=== PATIENT | female | born 1970 | race Caucasian/White ===

== ENCOUNTER 2016-07-19 18:07 | Emergency (ER) | payer OTHER ==
[~2016-07-19] VITALS: Ht 157.5 cm; Wt 55.8 kg
[2016-07-19 18:13] VITALS: BP 143/76
--- NOTE | 2016-07-19 19:19 | ED GI/GU/ABDOMINAL COMPLAINT ---
History of Present Illness General Chief Complaint: Female Urogenital Problems Stated Complaint: PT HAS ? POSSIBLE UTI Source: patient Exam Limitations: no limitations Vital Signs & Intake/Output Vital Signs & Intake/Output Vital Signs Date Time Temp Pulse Resp B/P Pulse O2 O2 Flow FiO2 Ox Delivery Rate 07/19 1813 98.9 83 18 143/76 98 Room Air Allergies Coded Allergies: NO KNOWN ALLERGIES (12/28/13) Reconcile Medications Benzonatate 100 MG CAPSULE 1 TAB PO DAILY U (Reported) Ciprofloxacin HCl (Cipro) 500 MG TABLET 1 TAB PO BID PRN UTI Mometasone Furoate (Nasonex) 50 MCG SPRAY.PUMP 1 SPRY NS PRN CONGESTION ( Reported) Phenazopyridine HCl (Pyridium) 100 MG TABLET 1 TAB PO TID PRN DYSURIA TAKE WITH FOOD THE COLOR OR YOUR URINE MAY CHANGE ORANGE Triage Note: 45 YO FEMALE TO ER C/O BURINING WITH URINATION. STATES LOWER ABD CRAMPING WHILE URINATING. STATES "I KNOW I HAVE A UTI BUT CANT WAIT TO SEE MY DR" PT STATES SHE TRIED OTC MEDICIEN WITHOUT RELIEF. PT PROVIDED WITH URINE CUP IN TRIAGE Triage Nurses Notes Reviewed? yes ? N Is pt currently ? No Onset: Gradual Duration: getting worse Timing: recent history Quality/Severity: moderate Severity Numbers: 7 Location: suprapubic Radiation: no radiation Prior Abdominal Problems: similar symptoms HPI: Patient is a 45-year-old female who presents emergency room with a seven-day history of worsening pain with urination increased frequency of urination and suprapubic abdominal discomfort. Patient denies any fever chills nausea vomiting back pain vaginal bleeding vaginal discharge or . Past History Travel History Traveled to [place] past 21 day No Medical History Any Pertinent Medical History? 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 No Review of Systems Review of Systems Constitutional: Reports: no symptoms. EENTM: Reports: no symptoms. Respiratory: Reports: no symptoms. Cardiovascular: Reports: no symptoms. GI: Reports: see HPI, abdominal pain. Genitourinary: Reports: see HPI, dysuria, frequency. Musculoskeletal: Reports: no symptoms. Skin: Reports: no symptoms. Neurological/Psychological: Reports: no symptoms. Hematologic/Endocrine: Reports: no symptoms. Immunologic/Allergic: Reports: no symptoms. All Other Systems: Reviewed and Negative Physical Exam Physical Exam General Appearance: no apparent distress Gastrointestinal: normal bowel sounds, soft, MILD SUPRAPUBIC POINT TENDERNESS, NO RIGHT LOWER QUADRANT PAIN NO REBOUND TENDERNESS NO PERITONEAL SIGNS Comments: Well-developed well-nourished person in no acute distress HEENT: Normal EENT exam, Neck: Supple, no lymphadenopathy, normal range of motion without pain or tenderness Back: Nontender, no CVA tenderness. Cardiovascular: Regular rate and rhythms no murmurs rubs or gallops, normal JVP Respiratory: Chest nontender. No respiratory distress.breath sounds clear to auscultation bilaterally Extremity: No edema, no calf tenderness to palpation, normal and equal pulses. Neuro: Alert oriented x3, motor sensory normal, Skin: No appreciable rash on exposed skin, skin is warm and dry. Psych: Mood and affect is normal, memory and judgment is normal. Core Measures ACS in differential dx? No Severe Sepsis Present: No Septic Shock Present: No Progress Differential Diagnosis: AAA, AMI, appendicitis, biliary colic, bowel obstruction , colon cancer, cholecystitis, diverticulitis, ectopic , endometritis, esophageal varices, gastritis, hepatitis, hernia, hemorrhoids, ischemic bowel, inflamm bowel dis, intrauterine , kidney stone, Mel-Leidy tear, ovarian cyst, ovarian torsion, pancreatitis, PID/cervicitis, peptic ulcer, PUD/ GERD, perforated viscous, SBO, threatened AB, UTI/pyelo Plan of Care: Orders Procedure Date/time Status Add-on Test (ER Only) 07/19 1909 Active URINE 07/19 1832 Complete CULTURE,URINE 07/19 1819 Active URINALYSIS 07/19 1819 Complete Laboratory Tests 07/19/161832: Urine Color YEL, Urine Clarity TURBD H, Urine pH 6.0, Ur Specific [place] >= 1.030, Urine Protein >=300 H, Urine Ketones NEG, Urine Nitrite NEG, Urine Bilirubin NEG, Urine Urobilinogen 0.2, Ur Leukocyte Esterase LARGE H, Ur Microscopic SEDIMENT EXAMINED, Urine RBC 15-25 H, Urine WBC PACKD H, Ur Epithelial Cells FEW, Urine Hemoglobin LARGE H, Urine Glucose NEG, Urine Test NEGATIVE Microbiology 07/19 1833 URINE ROUT: Urine Culture - RECD Due to history of present illness and exam findings patient is likely to have UNcomplicated cystitis urine culture currently is pending. Patient is able tolerate by mouth afebrile no CVA tenderness no right lower quadrant pain (MARNI HURST,HALLE) Initial ED EKG: none Departure Departure Disposition: HOME OR SELF CARE Condition: Stable Clinical Impression Primary Impression: UTI (urinary tract infection) Referrals: BAILEY HICKS APRN (PCP/Family) Additional Instructions: As discussed begin the prescription of ciprofloxacin as directed for the full course. Begin the prescription of Pyridium for your pain please note that this medication may change the color of your urine orange. If symptoms worsen return to emergency room. Begin [id number] Tylenol for pain. Prescription that waiting at [facility] pharmacy Departure Forms: Customer Survey General Discharge Information Prescriptions: Current Visit Scripts Ciprofloxacin HCl (Cipro) 1 TAB PO BID PRN UTI #20 TAB Phenazopyridine HCl (Pyridium) 1 TAB PO TID PRN DYSURIA #6 TAB TAKE WITH FOOD THE COLOR OR YOUR URINE MAY CHANGE ORANGE
[2016-07-19] MEDS ORDERED: BENZONATATE100 M1 PO (19:32)
[2016-07-19] MEDS ORDERED: NASONEX17 GM NS (19:33)
[2016-07-19] MEDS ORDERED: PYRIDIUM100 M1 PO (19:36)
[2016-07-19] MEDS ORDERED: CIPRO500 M1 PO (19:36)
== END 2016-07-19 19:43 ==
LOC: ERH 18:07
DX: N39.0 Urinary tract infection, site not specified (principal)
CPT/HCPCS: 81001; 81025; 87086

== ENCOUNTER 2017-09-22 09:48 | Inpatient (IN) | payer OTHER ==
[~2017-09-22] VITALS: Ht 157.5 cm; Wt 59.0 kg
[~2017-09-22 09:48] MED LIST: BENZONATATE100 M1 PO; CIPRO500 M1 PO; NASONEX17 GM NS; PYRIDIUM100 M1 PO
[2017-09-22 10:47] LABS: ABSOLUTE BASOPHIL COUNT 0 /CUMM (0.0-0.2); ABSOLUTE EOSINOPHIL COUNT 0 /CUMM (0.0-0.7); ABSOLUTE GRANULOCYTE CT 7.2 /CUMM (1.4-6.5); ABSOLUTE LYMPH COUNT 0.6 /CUMM (1.2-3.4); ABSOLUTE MONOCYTE COUNT 0.6 /CUMM (0.10-0.60); BASOPHIL % 0 % (0.0-2.0); EOSINOPHIL % 0.2 % (0-5); HEMATOCRIT 32.6 % (37-47); MEAN CORPUSCULAR HGB 24.2 PG (27.0-31.0); MEAN CORPUSCULAR HGB CONC 31.9 G/DL (33.0-37.0); MEAN CORPUSCULAR VOLUME 75.7 FL (81.0-99.0); MEAN PLATELET VOLUME 7.4 FL (7.4-10.4); PLATELET COUNT 209 /CUMM (130-400); RBC DISTRIBUTION WIDTH 16.8 % (11.5-14.5); RED BLOOD CELL CT 4.31 /CUMM (4.20-5.40); WHITE BLOOD CELL COUNT 8.4 /CUMM (4.8-10.8)
[2017-09-22 10:59] LABS: GRANULOCYTE % 85.4 % (42.2-75.2)
--- NOTE | 2017-09-22 11:54 | ED GENERAL ADULT ---
History of Present Illness General Chief Complaint: General Adult Stated Complaint: BIBA NEAR SYNCOPE, FEVER X FEW DAYS Source: patient, EMS Exam Limitations: no limitations Vital Signs & Intake/Output Vital Signs & Intake/Output Vital Signs Date Time Temp Pulse Resp B/P B/P Pulse O2 O2 Flow FiO2 Mean Ox Delivery Rate 09/22 1818 98.7 09/22 1626 103.7 09/22 1616 103.7 104 18 126/61 98 Room Air 09/22 1419 98 Room Air 09/22 1419 91 18 117/64 98 Room Air 09/22 1015 99.2 88 18 116/78 99 Room Air Room Air Allergies Coded Allergies: NO KNOWN ALLERGIES (07/19/16) Reconcile Medications No Known Home Medications Triage Note: BIBA FROM WORK WITH C/O FEVER, URINARY FREQUENCY, NEAR SYNCOPY AT WORK, TEMP WAS 100.4 AT WORK, TOOK TYLENOL AT WORK FOR THE FEVER. TEMP 99.2, 99% ON ROOM AIR. Triage Nurses Notes Reviewed? yes Onset: Abrupt Duration: day(s): (2), constant, getting worse Timing: recent history Injury Environment: home No Modifying Factors: none : No Patient currently breastfeeds: No HPI: 47-year-old female comes into the emergency room for further evaluation of almost passing out at work. Patient reports that she been feeling sick for the last couple days. She's had associated fever or chills. She's had some increased frequency and burning with urination. She has been experiencing some left-sided flank pain. She reports that she was at work and suddenly she had sitdown and everything just got very dizzy and lightheaded when she closes her eyes felt like she passed out. She reports that since this happened she's been profoundly weak. She cannot lift her arms or legs. She came in by ambulance. She reports a similar thing happen to her about a year ago and then the symptoms got better after couple days. She reports that she stayed in bed for 2 days. (Polo Qureshi) Past History Travel History Traveled to [place] past 21 day No Medical History Any Pertinent Medical History? 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 No (Polo Qureshi) Review of Systems Review of Systems Constitutional: Reports: no symptoms. EENTM: Reports: no symptoms. Respiratory: Reports: no symptoms. Cardiovascular: Reports: see HPI. GI: Reports: no symptoms. Genitourinary: Reports: see HPI. Musculoskeletal: Reports: no symptoms. Skin: Reports: no symptoms. Neurological/Psychological: Reports: see HPI. Hematologic/Endocrine: Reports: no symptoms. Immunologic/Allergic: Reports: no symptoms. All Other Systems: Reviewed and Negative (Polo Qureshi) Physical Exam Physical Exam General Appearance: alert, awake, lethargic Head: atraumatic Eyes: Bilateral: normal appearance, PERRL, EOMI. Ears, Nose, Throat: normal ENT inspection, hearing grossly normal Neck: normal inspection Respiratory: no respiratory distress Cardiovascular: regular rate/rhythm Gastrointestinal: soft Back: decreased range of motion Extremities: normal inspection, no edema Neurologic/Psych: awake, alert, oriented x 3, motor weakness (1/5 STRENGTH ALL EXTREMITIES) Reflexes: 4+: bicep (R), bicep (L), knee (R), knee (L). Skin: intact, normal color Core Measures ACS in differential dx? No CVA/TIA Diagnosis: No Sepsis Present: No Sepsis Focused Exam Completed? No (Polo Qureshi) Progress Differential Diagnoses I considered the following diagnoses in my evaluation of the patient: Hyperthyroid, electrolyte imbalance, multiple sclerosis, Ray syndrome, Guillain- Haddad syndrome, pyelonephritis, UTI, cardiac arrhythmia, Diagnostic Imaging: Viewed by Me: CT Scan. Discussed w/RAD: CT Scan. Radiology Impression: PATIENT: TOPHER BRONW PRESENT AGE: 47 PATIENT ACCOUNT NO: [id number] : 72 LOCATION: [facility] ORDERING PHYSICIAN: Polo HURST SERVICE DATE: 09/22/17-1153 EXAM TYPE: CAT - CT HEAD WO IV CONTRAST EXAMINATION: CT HEAD WITHOUT CONTRAST CLINICAL INFORMATION: Unable to move arms and legs. Syncope. COMPARISON: CT head 2016. TECHNIQUE: Contiguous axial imaging was performed from the skull base to vertex without intravenous administration of contrast. DLP: 606.52 mGy-cm FINDINGS: There is no acute intracranial hemorrhage or abnormal extra-axial collection. No intracranial mass effect or midline shift. Lateral and third ventricles are normal. No hydrocephalus. Miranda-white matter differentiation is grossly preserved and there is no evidence of acute territorial infarct. The calvarium and skull base are intact. Mastoid air cells and middle ear cavities are well-aerated. Visualized paranasal sinuses are well-aerated. IMPRESSION: Normal CT scan of the head. DICTATED BY: Kamran Solano MD DATE/TIME DICTATED:09/22/171235 AGENT BROKER:LIZ DATE/TIME TRANSCRIBED:1235 CONFIDENTIAL, DO NOT COPY WITHOUT APPROPRIATE AUTHORIZATION. < Electronically signed in Other Vendor System> SIGNED BY: Kamran Solano MD 09/22/17 1242 Initial ED EKG: normal sinus rhythm, rate (80) (Naresh HURST,Polo) Plan of Care: Orders Procedure Date/time Status TSH REFLEX 09/23 0600 Active CBC WITHOUT DIFFERENTIAL 09/23 0600 Active BASIC ELECTROLYTES PLUS BUN&CR 09/23 0600 Active Regular Diet 09/22 D Active MRI-CERVICAL SPINE 09/22 1659 Active PSYCHIATRIC CONSULT 09/22 1659 Active XRY-PORTABLE CHEST XRAY 09/22 1654 Active Patient Data 09/22 1521 Active TRC EVALUATION (GEN) 09/22 1507 Active PT Evaluate & Treat 09/22 1507 Active Pathway - chart 09/22 1507 Active House Staff 09/22 1507 Active Add-on Test (ER Only) 09/22 1507 Active Code Status 09/22 1507 Active Add-on Test (ER Only) 09/22 1504 Active ED Holding Orders 09/22 1440 Active Admit to inpatient 09/22 1440 Active Vital Signs 09/22 1440 Active Code Status 09/22 1440 Complete Add-on Test (ER Only) 09/22 1355 Active Add-on Test (ER Only) 09/22 1350 Active Add-on Test (ER Only) 09/22 1347 Active Add-on Test (ER Only) 09/22 1153 Active MISTAKE 09/22 1153 Active BLOOD CULTURE 09/22 1153 Active EKG 09/22 1153 Active THYROID STIMULATING HORMONE 09/22 1038 Complete TROPONIN LEVEL 09/22 1038 Complete TOTAL TRIODOTHYROXINE 09/22 1038 Complete THYROXINE 09/22 1038 Complete MAGNESIUM 09/22 1038 Complete LACTIC ACID 09/22 1038 Complete HUMAN BETA HCG SCREEN 09/22 1038 Complete FREE T4 09/22 1038 Complete CREATINE PHOSPHOKINASE 09/22 1038 Complete CULTURE,URINE 09/22 1035 Active URINALYSIS 09/22 1020 Complete RAPID VIRAL INFLUENZA A 09/22 1017 Complete COMPREHENSIVE METABOLIC PANEL 09/22 1017 Complete CBC WITHOUT DIFFERENTIAL 09/22 1017 Complete SWALLOW EVALUATION 09/22 UNK Active VTE Mechanical Prophylaxis 09/22 UNK Active NIH Stroke Scale 09/22 UNK Complete Intake & Output 09/22 UNK Active Current Medications Sig/Efrain Start time Last Medication Dose Stop Time Status Admin Ceftriaxone Sodium 1,000 MG DAILY 09/23 0900 AC (Rocephin) Enoxaparin Sodium 40 MG DAILY 09/23 0900 AC (Lovenox) Sodium Chloride 1,000 ML .[id number] 09/22 1515 AC 09/22 (Normal Saline 0.9%) 09/23 1754 1530 Laboratory Tests 09/22/17 1038: Anion Gap 12, Estimated GFR > 60, BUN/Creatinine Ratio 22.0, Glucose 122 H, Lactic Acid 0.8, Calcium 9.4, Magnesium 1.9, Total Bilirubin 0.5, AST 12 L, ALT 26, Alkaline Phosphatase 59, Creatine Kinase 70, Troponin I < 0.01, Total Protein 7.2, Albumin 3.9, Globulin 3.3, Albumin/Globulin Ratio 1.2, TSH 0.232 L , Free T4 1.00, Thyroxine (T4) 7.8, Total T3 0.99, Total Beta HCG NEGATIVE, CBC w Diff NO MAN DIFF REQ, RBC 4.31, MCV 75.7 L, MCH 24.2 L, MCHC 31.9 L, RDW 16.8 H, MPV 7.4, Gran % 85.4 H, Lymphocytes % 7.5 L, Monocytes % 6.9, Eosinophils % 0.2, Basophils % 0, Absolute Granulocytes 7.2 H, Absolute Lymphocytes 0.6 L, Absolute Monocytes 0.6, Absolute Eosinophils 0, Absolute Basophils 0 09/22/17 1035: Urine Color YEL, Urine Clarity HAZY H, Urine pH 6.0, Ur Specific [place] 1.025, Urine Protein 100 H, Urine Ketones NEG, Urine Nitrite POS H, Urine Bilirubin NEG, Urine Urobilinogen 0.2, Ur Leukocyte Esterase MOD H, Ur Microscopic SEDIMENT EXAMINED, Urine RBC 5-10 H, Urine WBC 25-50 H, Urine Bacteria MANY H , Urine Hemoglobin LARGE H, Urine Glucose NEG Microbiology 09/22 1330 BLOOD: Blood Culture - RECD 09/22 1214 BLOOD: Blood Culture - RECD 09/22 1035 URINE ROUT: Urine Culture - RECD 09/22 1035 NASOPHARYN: Influenza Virus A & B Rapid Smear - COMP (Gary Pelayo DO) Departure Departure Disposition: STILL A PATIENT Condition: Stable Clinical Impression Primary Impression: Pyelonephritis Secondary Impressions: Hyper reflexia, Motor dysfunction Referrals: Caryn Ochoa APRN (PCP/Family) Departure Forms: Customer Survey General Discharge Information Prescriptions: Current Visit Scripts No Known Home Medications Admission Note Spoke With: Caity Watkins MD Documentation of Exam: Documentation of any treatments & extenuating circumstances including Concerns Regarding Discharge (functional status, medication knowledge or non-compliance, living conditions, etc.) that warrant an admission rather than observation: Patient will require IV fluids. IV antibiotics. MRI of brain and spinal cord. Neurology consultation. PT consult patient unable to ambulate. Patient has progressive motor weakness diffuse with no clear etiology at this time. She is unsafe for discharge. She may require lumbar puncture. Dr. Guerra was consulted and will see the patient. (Polo Qureshi) PA/TREE WARDEN Co-Sign Statement Statement: ED Attending supervision documentation- [X] I saw and evaluated the patient. I have also reviewed all the pertinent lab results and diagnostic results. I agree with the findings and the plan of care as documented in the PA's/TREE WARDEN's documentation. [] I have reviewed the ED Record and agree with the PA's/TREE WARDEN's documentation. [] Additions or exceptions (if any) to the PAs/TREE WARDEN's note and plan are summarized below: [] I saw and personally examined the patient and I agree with the PAs evaluation. She is currently awake alert and oriented 3. She is in no acute distress. She is being admitted to telemetry for further care. She says she's had similar episodes of the same symptoms complex in the past (Gary Pelayo DO L.) Critical Care Note Critical Care Note Critical Care Time: non-applicable (Naresh HURST,Polo)
--- NOTE | 2017-09-22 12:42 | CT SCAN REPORT ---
EXAMINATION: CT HEAD WITHOUT CONTRAST CLINICAL INFORMATION: Unable to move arms and legs. Syncope. COMPARISON: CT head 12/16/2016. TECHNIQUE: Contiguous axial imaging was performed from the skull base to vertex without intravenous administration of contrast. DLP: 606.52 mGy-cm FINDINGS: There is no acute intracranial hemorrhage or abnormal extra-axial collection. No intracranial mass effect or midline shift. Lateral and third ventricles are normal. No hydrocephalus. Miranda-white matter differentiation is grossly preserved and there is no evidence of acute territorial infarct. The calvarium and skull base are intact. Mastoid air cells and middle ear cavities are well-aerated. Visualized paranasal sinuses are well-aerated. IMPRESSION: Normal CT scan of the head.
--- NOTE | 2017-09-22 13:53 | History & Physical ---
Shantel Soliz MD,[facility] 09/22/17 1353: General Information and HPI MD Statement: I have seen and personally examined TOPHER BROWN and documented this H&P. The patient is a 47 year old F who presented with a patient stated chief complaint of [syncope and weakness]. Source of Information: patient History of Present Illness: Patient is a 47-year-old female with no signficant PMH was BIBA from work after a near syncope. A colic of her was present at the bedside and contributing kidney surgery taking. 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 Patient reported that since last week she was having increased frequency and dysuria. She also noted that during the last week she had one episode of upper respiratory tract symptoms, fever of 99-100. This morning she was at work, again had fever, she took tynelol but was feeling extremely weak, she went to break room, she sat on chair and could not move and passed. According to her colic she lost consciousness for a few minutes, she couldn't speak. She denied any palpitation, nausea vomiting, chest pain, shortness of breathing, losing continence or jercky motion. she also reported tingling in arms and feet with weakness being more sever in the lower extremities. She denied any recent tavel, tick bit or loose stools. Of note patient was admitted to the ED in the past after passing out during dentis work. 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 Exam & Diagnostic Data Last 24 Hrs of Vital Signs/I&O Vital Signs Date Time Temp Pulse Resp B/P B/P Pulse O2 O2 Flow FiO2 Mean Ox Delivery Rate 09/22 1626 103.7 09/22 1616 103.7 104 18 126/61 98 Room Air 09/22 1419 98 Room Air 09/22 1419 91 18 117/64 98 Room Air 09/22 1015 99.2 88 18 116/78 99 Room Air Room Air Intake & Output 09/22 1600 09/22 0800 09/22 0000 Intake Total 1000 Output Total Balance 1000 Intake, IV 1000 Patient 124 lb Weight Weight Reported by Patient Measurement Method Physical Exam General Appearance Alert, Oriented X3, Cooperative, shaking at times Skin No Significant Lesion Skin Temp/Moisture Exam: Warm/Dry Sepsis Skin Exam (color): Normal for Ethnicity HEENT Atraumatic, EOMI Cardiovascular Normal S1, Normal S2 Lungs Normal Air Movement Abdomen Soft, No Tenderness Neurological bilateral LE and UE 0-1/5, increased reflexes bilaterally, cranial nerves normal. decreased sensation in distal LE. Extremities No Edema Last 24 Hrs of Labs/Diego: Laboratory Tests 09/22/17 1038: Anion Gap 12, Estimated GFR > 60, BUN/Creatinine Ratio 22.0, Glucose 122 H, Lactic Acid 0.8, Calcium 9.4, Magnesium 1.9, Total Bilirubin 0.5, AST 12 L, ALT 26, Alkaline Phosphatase 59, Creatine Kinase 70, Troponin I < 0.01, Total Protein 7.2, Albumin 3.9, Globulin 3.3, Albumin/Globulin Ratio 1.2, TSH 0.232 L , Free T4 1.00, Thyroxine (T4) 7.8, Total T3 0.99, Total Beta HCG NEGATIVE, CBC w Diff NO MAN DIFF REQ, RBC 4.31, MCV 75.7 L, MCH 24.2 L, MCHC 31.9 L, RDW 16.8 H, MPV 7.4, Gran % 85.4 H, Lymphocytes % 7.5 L, Monocytes % 6.9, Eosinophils % 0.2, Basophils % 0, Absolute Granulocytes 7.2 H, Absolute Lymphocytes 0.6 L, Absolute Monocytes 0.6, Absolute Eosinophils 0, Absolute Basophils 0 09/22/17 1035: Urine Color YEL, Urine Clarity HAZY H, Urine pH 6.0, Ur Specific [place] 1.025, Urine Protein 100 H, Urine Ketones NEG, Urine Nitrite POS H, Urine Bilirubin NEG, Urine Urobilinogen 0.2, Ur Leukocyte Esterase MOD H, Ur Microscopic SEDIMENT EXAMINED, Urine RBC 5-10 H, Urine WBC 25-50 H, Urine Bacteria MANY H , Urine Hemoglobin LARGE H, Urine Glucose NEG Microbiology 09/22 1330 BLOOD: Blood Culture - RECD 09/22 1214 BLOOD: Blood Culture - RECD 09/22 1035 URINE ROUT: Urine Culture - RECD 09/22 1035 NASOPHARYN: Influenza Virus A & B Rapid Smear - COMP Assessment/Plan Assessment: 47-year-old F with no signficant PMH was BIBA from work after a near syncope - associated with increasd frequency and disuria - fever VS, Ph Ex at admission: MAXIMUM TEMPERATURE 99.2, BP 116/78, NV 88, RR 18 Labs at admission: WBC 8.4, Hgb 10.4, 85% granulocytic, no band, BEP 3.3, UA Imagings at admission: Head CT: Normal Patient was admitted to tele floor for management of following conditions: Cyncope, bilateral LE and UE weakness, decreased sensation LE, increased reflex Not consistant with any pathology, considering sensation decrease and increased reflex. we will rule out peripheral neuropathy, as well as cervical spine pathology. we will also consider conversion disorder, of note patient had previous admissions to ED after syncope in dentis office. - admit to tele floor - neurochecks, breathing test - Neuro consult - MRI cervical spine - follow repeat TFT Active UA, fever Vital sign stable at time of admission. We will treat pyelonephritis with IV ceftriaxone. -IV fluids -IV ceftriaxone - follow Urine culture FC Regular DVT PPX: pharmacological, alps As Ranked By This Provider Problem List: 1. Syncope 2. UTI (urinary tract infection) Core Measures/Misc (02/22) Acute Coronary Syndrome ACS Diagnosis: No Congestive Heart Failure Congestive Heart Failure Diagnosis No Cerebrovascular Accident CVA/TIA Diagnosis: No VTE (View Protocol) VTE Risk Factors Age>40 No Mechanical VTE Prophylaxis d/t N/A MechProphylax Ordered No VTE Pharm Prophylaxis d/t NA PharmProphylax ordered Sepsis (View protocol) Sepsis Present: No Enrique Lechuga 09/22/17 1612: Resident Review Statement Resident Statement: examined this patient, discussed with internal security manager, agreed with internal security manager, discussed with family, reviewed EMR data (avail), discussed with nursing , amended to note Other Findings: 47-year-old woman with no significant past medical history with recent lingering upper respiratory/urinary symptoms of one-week duration, seat no medical attention, reported temperatures at home of 99/100, 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 She admitted to being a warmth, feeling feverish prior to her episode while she was in a seated position. She is accompanied by a coworker, who reports that she was unconscious for 2 minutes, no seizure-like activity, no facial droop, no slurry speech. This prompted them to call ED. In the ED, patient had unremarkable set of labs except for low normal TSH and a urine positive for nitrite. Head CT obtained revealed normal scan of the head. On exam, cranial nerves WNL, motor exam-good tone with passive motion, no rigidity. Absent active motion. Able to move her fingers unprompted. Hyperreflexic in bilateral lower extremities. Normal bicep tendon reflexes. Given patient's peculiar presentation, in the setting of recent respiratory infections, spinal causes of her current presentation need to be ruled out with MRI C-spine. If unable to show spontaneous improvement, she may need a MRI head to rule out a demyelinating disease, although unlikely. Her presentation could also suggest subclinical thyroid disease in the setting of low TSH, hyperreflexia, recent upper respiratory infection. But her nontender and normal thyroid exam may counter this part. Repeat TSH, T4 tomorrow morning. She may need an endocrinology evaluation. Neurology evaluation. Treat UTI with IV ceftriaxone. Fluid hydration. Full code Regular diet Lovenox for DVT prophylaxis Caity Watkins MD 09/22/17 1642: Past Family/Social History Psychosocial History Other Social History: Family history non contributory to current illness. Attending MD Review Statement Attending Statement Attending MD Statement: examined this patient, discuss w/resident/PA/KITCHEN FOOD ASSEMBLER, agreed w/resident/PA/KITCHEN FOOD ASSEMBLER, reviewed EMR data (avail), discussed with nursing, reviewed images Attending Assessment/Plan: 47-year-old female no significant past medical history. 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 She is here after a witnessed syncopal event at work. Initially patient had a low-grade fever in the ER and was complaining of urinary frequency and burning. Later she spiked to 103.8 and is tachycardic. Given the fever, the tachycardia and the positive UA- I believe this is all sepsis of urological origin. Will bring her into telemetry given the syncopal event, get blood cultures and start on IV ceftriaxone and closely follow the urine culture. We will replete her hypokalemia and gently hydrate her. Her neurological exam is extremely confusing and nonfocal. She has hyperreflexia and her sensory deficit in her lower extremities don't fit any anatomical area. She was seen by neurology who feels that likely this is conversion disorder but given the history and hyperreflexia an MRI of the C- spine is warranted which we will pursue. I think the syncope is all from dehydration and sepsis and will watch her on the monitor overnight. If she has no further events and is stable will have a low threshold to downgrade to general med. Will put her on DVT prophylaxis and follow-up.
--- NOTE | 2017-09-22 16:11 | Cons- Neurology ---
General Information and HPI Consulting Request Date of Consult: 09/22/17 Requested By: Caity Watkins MD Reason for Consult: Unable to move after syncope Source of Information: patient, old records, friend Exam Limitations: poor historian History of Present Illness: 47? originally from [facility] not feeling well with feverishness, malaise, low back aches for several days but able to walk and go to work passed out at her workplace this AM. No seizure activity witnessed, no apparent head or neck injury, but reports inability to move the 4 extremities normally since then. When asked offers tingling paresthesias hands and feet. Denies any prior neurologic abnormality. CT head OK Allergies/Medications Allergies: Coded Allergies: NO KNOWN ALLERGIES (07/19/16) Home Med List: No Known Home Medications Current Medications: Current Medications Sig/Efrain Start time Last Medication Dose Route Stop Time Status Admin Ceftriaxone Sodium 1,000 MG DAILY 09/23 0900 UNVr IV Ceftriaxone Sodium 0 .STK-MED ONE 09/22 1430 DC .ROUTE Ceftriaxone Sodium 1,000 MG ONCE ONE 09/22 1200 DC 09/22 IV 09/22 1201 1530 Enoxaparin Sodium 40 MG DAILY 09/23 0900 UNVr SC Potassium Chloride 0 .STK-MED ONE 09/22 1429 DC PO Potassium Chloride 40 MEQ ONCE ONE 09/22 1400 DC 09/22 PO 09/22 1401 1428 Sodium Chloride 1,000 ML .[id number] 09/22 1515 UNVr 09/22 IV 09/23 1754 1530 Sodium Chloride 1,000 ML BOLUS ONE 09/22 1200 DC 09/22 IV 09/22 1259 1415 Review of Systems Review of Systems: dysuria, denies headache, nausea, chest pain or dyspnea. no incontinence noted. other systems on complete ROS negative or non-contributory Past History Travel History Traveled to [place] past 21 day No Medical History Neurological: NONE EENT: NONE Cardiovascular: NONE Respiratory: NONE Gastrointestinal: NONE Hepatic: NONE Renal: NONE Musculoskeletal: NONE Psychiatric: NONE Endocrine: NONE Blood Disorders: anemia Cancer(s): NONE MANAGER APPOINTMENT/Reproductive: NONE Surgical History Surgical History: , breast biopsy Psychosocial History ETOH Use: denies use Illicit Drug Use: denies illicit drug use Exam & Diagnostic Data Vital Signs and I&O Vital Signs Date Time Temp Pulse Resp B/P B/P Pulse O2 O2 Flow FiO2 Mean Ox Delivery Rate 09/22 1419 98 Room Air 09/22 1419 91 18 117/64 98 Room Air 09/22 1015 99.2 88 18 116/78 99 Room Air Room Air Intake & Output 09/22 1600 09/22 0800 09/22 0000 Intake Total 1000 Output Total Balance 1000 Intake, IV 1000 Patient 124 lb Weight Weight Reported by Patient Measurement Method Physical Exam: Alert, in no distress speech accented, not dysarthric, no dyphasia [id number] EOMI face symmetric, eyes open during history taking but then claimed could not open them when eyes examined, had to lift lids manually to see pupils unable to protrude tongue or move tongue left or right when asked, but speech clear Motor: initially no movement any extremity, she holds them rigid in extension, but later reached up to touch her face. reports abnormal sensation to touch face and 4 ext DTRs hyperactive but no clonus, Singleton's or Babinski signs Last 48 Hours of Lab Results: Laboratory Tests 09/22 09/22 1038 1035 Chemistry Sodium (137 - 145 mmol/L) 141 Potassium (3.5 - 5.1 mmol/L) 3.3 L Chloride (98 - 107 mmol/L) 107 Carbon Dioxide (22 - 30 mmol/L) 22 Anion Gap (5 - 16) 12 BUN (7 - 17 mg/dL) 11 Creatinine (0.5 - 1.0 mg/dL) 0.5 Estimated GFR (>60 ml/min) > 60 BUN/Creatinine Ratio (7 - 25 %) 22.0 Glucose (65 - 99 mg/dL) 122 H Lactic Acid (0.7 - 2.1 mmol/L) 0.8 Calcium (8.4 - 10.2 mg/dL) 9.4 Magnesium (1.6 - 2.3 mg/dL) 1.9 Total Bilirubin (0.2 - 1.3 mg/dL) 0.5 AST (14 - 36 U/L) 12 L ALT (9 - 52 U/L) 26 Alkaline Phosphatase (<127 U/L) 59 Creatine Kinase (30 - 135 U/L) 70 Troponin I (< 0.11 ng/ml) < 0.01 Total Protein (6.3 - 8.2 g/dL) 7.2 Albumin (3.5 - 5.0 g/dL) 3.9 Globulin (1.9 - 4.2 gm/dL) 3.3 Albumin/Globulin Ratio (1.1 - 2.2 %) 1.2 TSH (0.270 - 4.200 uIU/mL) 0.232 L Free T4 (0.64 - 1.79 ng/dL) 1.00 Thyroxine (T4) (4.5 - 10.9 ug/dL) 7.8 Total T3 (0.97 - 1.69 ng/mL) 0.99 Total Beta HCG (NEGATIVE) NEGATIVE Hematology CBC w Diff NO MAN DIFF REQ WBC (4.8 - 10.8 /CUMM) 8.4 RBC (4.20 - 5.40 /CUMM) 4.31 Hgb (12.0 - 16.0 G/DL) 10.4 L Hct (37 - 47 %) 32.6 L MCV (81.0 - 99.0 FL) 75.7 L MCH (27.0 - 31.0 PG) 24.2 L MCHC (33.0 - 37.0 G/DL) 31.9 L RDW (11.5 - 14.5 %) 16.8 H Plt Count (130 - 400 /CUMM) 209 MPV (7.4 - 10.4 FL) 7.4 Gran % (42.2 - 75.2 %) 85.4 H Lymphocytes % (20.5 - 51.1 %) 7.5 L Monocytes % (1.7 - 9.3 %) 6.9 Eosinophils % (0 - 5 %) 0.2 Basophils % (0.0 - 2.0 %) 0 Absolute Granulocytes (1.4 - 6.5 /CUMM) 7.2 H Absolute Lymphocytes (1.2 - 3.4 /CUMM) 0.6 L Absolute Monocytes (0.10 - 0.60 /CUMM) 0.6 Absolute Eosinophils (0.0 - 0.7 /CUMM) 0 Absolute Basophils (0.0 - 0.2 /CUMM) 0 Urines Urine Color (YEL,AMB,STR) YEL Urine Clarity (CLEAR) HAZY H Urine pH (5.0 - 8.0) 6.0 Ur Specific [place] (1.001 - 1.035) 1.025 Urine Protein (NEG,<30 MG/DL) 100 H Urine Ketones (NEG) NEG Urine Nitrite (NEG) POS H Urine Bilirubin (NEG) NEG Urine Urobilinogen (0.1 - 1.0 EU/dl) 0.2 Ur Leukocyte Esterase (NEG) MOD H Ur Microscopic SEDIMENT EXAMINED Urine RBC (0 - 5 /HPF) 5-10 H Urine WBC (0 - 2 /HPF) 25-50 H Urine Bacteria (NEG/NONE) MANY H Urine Hemoglobin (NEG) LARGE H Urine Glucose (N MG/DL) NEG Imaging/Other Studies: Normal CT scan of the head. Assessment/Plan Assessment: Conversion reaction non-physiologic neuro exam Recommendations: due to hyperreflexia and history would check MRI C-Spine psychiatric consultation Consult Acknowledgment - Thank you for your consult request.
--- NOTE | 2017-09-22 18:42 | RADIOLOGY REPORT ---
EXAMINATION: XR PORTABLE CHEST CLINICAL INFORMATION: Fever COMPARISON: None TECHNIQUE: Portable frontal view of the chest was obtained. FINDINGS: The cardiomediastinal silhouette is normal. The lungs are clear. No consolidation, pulmonary edema, pleural effusion, or pneumothorax. No acute osseous abnormality. IMPRESSION: No acute abnormality.
[2017-09-23 06:05] LABS: ABSOLUTE BASOPHIL COUNT 0 /CUMM (0.0-0.2); ABSOLUTE EOSINOPHIL COUNT 0 /CUMM (0.0-0.7); ABSOLUTE GRANULOCYTE CT 7.2 /CUMM (1.4-6.5); ABSOLUTE LYMPH COUNT 0.8 /CUMM (1.2-3.4); ABSOLUTE MONOCYTE COUNT 0.5 /CUMM (0.10-0.60); BASOPHIL % 0.2 % (0.0-2.0); EOSINOPHIL % 0.2 % (0-5); GRANULOCYTE % 84.4 % (42.2-75.2); HEMATOCRIT 30.5 % (37-47); MEAN CORPUSCULAR HGB CONC 31.7 G/DL (33.0-37.0); MEAN CORPUSCULAR VOLUME 75.8 FL (81.0-99.0); MEAN PLATELET VOLUME 8.5 FL (7.4-10.4); PLATELET COUNT 179 /CUMM (130-400); RBC DISTRIBUTION WIDTH 17.6 % (11.5-14.5); RED BLOOD CELL CT 4.02 /CUMM (4.20-5.40); WHITE BLOOD CELL COUNT 8.6 /CUMM (4.8-10.8)
--- NOTE | 2017-09-23 06:30 | Event Note ---
Event Note Event Note: call back from micro lab that blood cultures 1/2 bottles is growing GNR patient has been spiking fevers overnight for which she has received motrin and tylenol patient received IV Ceftriaxone in the ER yesterday.
[2017-09-23 07:00] VITALS: BP 96/51
--- NOTE | 2017-09-23 07:42 | PN- Housestaff ---
See Addendum Subjective Follow-up For: - Syncope - GNR bacteremia Complaints: no complaints Subjective: Patient seen and exmained at bedside. She is growing gram negative rods in her blood. States that she feels better than yesterday. Of note she was texting when I first walked in the room, however, she later stated that she feels weak, and was not able to scoot herself up in bed, while exmaining her. She denies any numbness, or tingling sensation and is moving all her extremities. No focal parestehisa or sensation Vitals past 24 hrs Tmax: 103.7-->101.9F, tachycardic to 109 (sinus); BP: 96-126/ 51-60 saturating 98% on RA. Review of Systems Constitutional: Reports: chills, fever, weakness. EENTM: Denies: visual changes. Cardiovascular: Denies: chest pain, orthopena, palpitations, peripheral edema. Respiratory: Denies: cough, hemoptysis, orthopnea, short of breath, sputum production, wheezing. Gastrointestinal: Denies: abdominal pain, constipation, diarrhea, nausea, vomiting. Genitourinary: Reports: dysuria, frequency. Denies: hematuria. Musculoskeletal: Reports: no symptoms. Neurological/Psychological: Reports: weakness. Denies: headache, numbness, tingling, tremors. Objective Last 24 Hrs of Vital Signs/I&O Vital Signs Date Time Temp Pulse Resp B/P B/P Pulse O2 O2 Flow FiO2 Mean Ox Delivery Rate 09/23 0552 97.7 70 18 96/51 97 Room Air 09/23 0156 101.0 09/23 0012 101.4 108 16 111/55 97 Room Air 09/22 2246 101.9 09/22 2217 101.9 109 20 128/60 99 Room Air 09/22 1920 98.4 92 20 98/56 97 Room Air 09/22 1818 98.7 09/22 1626 103.7 09/22 1616 103.7 104 18 126/61 98 Room Air 09/22 1419 98 Room Air 09/22 1419 91 18 117/64 98 Room Air 09/22 1015 99.2 88 18 116/78 99 Room Air Room Air Intake & Output 09/23 0800 09/23 0000 09/22 1600 Intake Total 1000 Output Total Balance 1000 Intake, IV 1000 Patient 124 lb Weight Weight Reported by Patient Measurement Method Physical Exam General Appearance: Alert, Oriented X3, Cooperative, No Acute Distress Skin Temp/Moisture Exam: Warm/Dry HEENT: Atraumatic, PERRLA, EOMI, dry mucous membranes Neck: Supple, No JVD, No thryomegaly, No LAD Cardiovascular: Regular Rate, Normal S1, Normal S2, No Murmurs Lungs: Clear to Auscultation, Normal Air Movement Abdomen: Normal Bowel Sounds, Soft, No Tenderness Neurological: Normal Speech, Normal Tone, Sensation Intact, Cranial Nerves 3-12 NL, Reflexes 2+, strength 3/5 in all 4 extremities, plantars downgoing Extremities: No Edema, Normal Pulses, No Tenderness/Swelling Current Medications: Current Medications Sig/Efrain Start time Last Medication Dose Route Stop Time Status Admin Acetaminophen 0 .STK-MED ONE 09/23 0202 DC PO Acetaminophen 650 MG ONCE ONE 09/23 0200 DC 09/23 PO 09/23 0201 0156 Acetaminophen 0 .STK-MED ONE 09/22 1625 DC IV Acetaminophen 1,000 MG ONCE ONE 09/22 1615 DC 09/22 N/A 1 UNIT IV 09/22 1629 1626 Ceftriaxone Sodium 1,000 MG DAILY 09/23 0900 AC IV Ceftriaxone Sodium 0 .STK-MED ONE 09/22 1430 DC .ROUTE Ceftriaxone Sodium 1,000 MG ONCE ONE 09/22 1200 DC 09/22 IV 09/22 1201 1530 Enoxaparin Sodium 40 MG DAILY 09/23 0900 AC SC Ibuprofen 0 .STK-MED ONE 09/22 2251 DC PO Ibuprofen 0 .STK-MED ONE 09/22 2249 DC PO Ibuprofen 400 MG ONCE ONE 09/22 2230 DC 09/22 PO 09/22 2231 2246 Potassium Chloride 0 .STK-MED ONE 09/22 1429 DC PO Potassium Chloride 40 MEQ ONCE ONE 09/22 1400 DC 09/22 PO 09/22 1401 1428 Sodium Chloride 1,000 ML BOLUS ONE 09/22 1630 DC 09/22 IV 09/22 1729 1626 Sodium Chloride 1,000 ML .[id number] 09/22 1515 AC 09/23 IV 09/23 1754 0439 Sodium Chloride 1,000 ML BOLUS ONE 09/22 1200 DC 09/22 IV 09/22 1259 1415 Last 24 Hrs of Lab/Diego Results Last 24 Hrs of Labs/Mics: Laboratory Tests 09/23/17 0547: Anion Gap 10, Estimated GFR > 60, BUN/Creatinine Ratio 15.0, Phosphorus Pending, Magnesium Pending, Creatine Kinase Pending, TSH &T3 &Free T4 Intrp 0.234 L, CBC w Diff NO MAN DIFF REQ, RBC 4.02 L, MCV 75.8 L, MCH 24.0 L, MCHC 31.7 L, RDW 17.6 H, MPV 8.5, Gran % 84.4 H, Lymphocytes % 8.9 L, Monocytes % 6.3, Eosinophils % 0.2, Basophils % 0.2, Absolute Granulocytes 7.2 H, Absolute Lymphocytes 0.8 L, Absolute Monocytes 0.5, Absolute Eosinophils 0, Absolute Basophils 0 09/22/17 1038: Anion Gap 12, Estimated GFR > 60, BUN/Creatinine Ratio 22.0, Glucose 122 H, Lactic Acid 0.8, Calcium 9.4, Magnesium 1.9, Total Bilirubin 0.5, AST 12 L, ALT 26, Alkaline Phosphatase 59, Creatine Kinase 70, Troponin I < 0.01, Total Protein 7.2, Albumin 3.9, Globulin 3.3, Albumin/Globulin Ratio 1.2, TSH 0.232 L , Free T4 1.00, Thyroxine (T4) 7.8, Total T3 0.99, Total Beta HCG NEGATIVE, CBC w Diff NO MAN DIFF REQ, RBC 4.31, MCV 75.7 L, MCH 24.2 L, MCHC 31.9 L, RDW 16.8 H, MPV 7.4, Gran % 85.4 H, Lymphocytes % 7.5 L, Monocytes % 6.9, Eosinophils % 0.2, Basophils % 0, Absolute Granulocytes 7.2 H, Absolute Lymphocytes 0.6 L, Absolute Monocytes 0.6, Absolute Eosinophils 0, Absolute Basophils 0 09/22/17 1035: Urine Color YEL, Urine Clarity HAZY H, Urine pH 6.0, Ur Specific [place] 1.025, Urine Protein 100 H, Urine Ketones NEG, Urine Nitrite POS H, Urine Bilirubin NEG, Urine Urobilinogen 0.2, Ur Leukocyte Esterase MOD H, Ur Microscopic SEDIMENT EXAMINED, Urine RBC 5-10 H, Urine WBC 25-50 H, Urine Bacteria MANY H , Urine Hemoglobin LARGE H, Urine Glucose NEG Microbiology 09/22 1330 BLOOD: Blood Culture - RES GRAM NEGATIVE RODS 09/22 1214 BLOOD: Blood Culture - RES GRAM NEGATIVE RODS 09/22 1035 URINE ROUT: Urine Culture - RECD 09/22 1035 NASOPHARYN: Influenza Virus A & B Rapid Smear - COMP Orders Radiology Findings: SERVICE DATE: 09/22/17 EXAM TYPE: CAT - CT HEAD WO IV CONTRAST FINDINGS: There is no acute intracranial hemorrhage or abnormal extra-axial collection. No intracranial mass effect or midline shift. Lateral and third ventricles are normal. No hydrocephalus. Miranda-white matter differentiation is grossly preserved and there is no evidence of acute territorial infarct. The calvarium and skull base are intact. Mastoid air cells and middle ear cavities are well-aerated. Visualized paranasal sinuses are well-aerated. IMPRESSION: Normal CT scan of the head. SERVICE DATE: 09/22/17 EXAM TYPE: RAD - XRY-PORTABLE CHEST XRAY FINDINGS: The cardiomediastinal silhouette is normal. The lungs are clear. No consolidation, pulmonary edema, pleural effusion, or pneumothorax. No acute osseous abnormality. IMPRESSION: No acute abnormality. Assessment/Plan Assessment: 47-year-old female with no signficant PMH was BIBA from work after a near syncope, low grade fevers, and urinary frequency and inability to move all 4 extremities since the episode of syncope happened earlier the day of her admission. Vitals on admission febrile to 103.7, tachycardic to 104, respiratory rate of 18 , blood pressure 126/61 saturating 98% on room air. On exam, cranial nerves WNL, motor exam-good tone with passive motion, no rigidity. Absent active motion. Able to move her fingers unprompted. Hyperreflexic in bilateral lower extremities. Normal bicep tendon reflexes. Labs pertinent for microcytic anemia with an H&H of 10.4/32.6 and an MCV of 75.7 with a normal platelet count of 209 and a white blood cell count of 8400. Serum chemistries presented for hypokalemia with potassium of 3.3, sodium of 141, bicarb 12, anion gap of 12, BUN 11, creatinine 0.5 and serum glucose 122, serum calcium 9.4 magnesium 1.9. LFTs pertinent for a total bili of 0.5, AST/ALT 12/ 26, alk phos of 59, creatinine kinase of 70, troponin I less than 0.01, TSH is 0.23 200 free T4 is 1.0. Beta hCG was negative. UA was very dirty positive for nitrite, moderate amount of leukocyte esterase with 25-50 white blood cells and a large amount of bacteria. CT head showed no acute intracranial hemorrhage or abnormal extra axial collection with no intracranial mass-effect or midline shift. Chest x-ray showed no acute abnormality. Assessment and plan Continue to monitor on telemetry. #Syncope -In the event of underlying sepsis from a urinary tract infection patient most likely had a syncopal episode secondary to dehydration and orthostatic positive. Of note she has not had any events on the monitor. Continue to maintain on fall precautions #Sepsis given fever, tachycardia and hypotension secondary to urinary tract infection Patient was started on IV ceftriaxone and IV fluids given that she had a dirty urine. Blood cultures and urine cultures are growing gram-negative rods. She is continued on IV ceftriaxone and treated for bacteremia secondary to UTI. Continue to maintain on gentle hydration for now Follow-up cultures and sensitivities #Inability to move all 4 extremities status post syncopal episode On admissions her symptoms were concerning for GB syndrome, versus myasthenia gravis versus any underlying neuromuscular disorder vs stroke (unlikely) given that patient was barely opening her eyes, not protruding her tongue or extremities, had hyperactive DTRs but no clonus, or Babinski signs. Neurology consult was placed and patient was she was placed on telemetry to monitor for her respiratory status and every 2hrs neurochecks. Of note patient's symptoms subsequently improved. Other causes could be hypokalemic paralysis given she was low on her potassium however her symptoms improved despite the serum potassium still being low. There is concern that she may have some underlying psychiatric disorder and potentially conversion given she had a nonphysiologic neuro exam. Given her hyperreflexia an MRI of her cervical spine was done that showed no acute abnormalitity. A psych consult was also obtained. We will follow-up psych recommendations. Though her symptoms did not fit the picture of stroke, speech swallow eval was ordered and they recommended that she started be on a regular diet. -DVT prophylaxis On Lovenox 40 mg subcu daily Diet Regular CODE STATUS Full Code Problem List: 1. UTI (urinary tract infection) 2. Syncope Pain Ratin Pain Location: headache Pain Goal: Remain pain free Pain Plan: motrin; tylenol Tomorrow's Labs & Rationales: BEMireya - K
[2017-09-23 10:50] VITALS: BP 113/55
--- NOTE | 2017-09-23 13:00 | MRI REPORT ---
MR CERVICAL SPINE WITHOUT CONTRAST CLINICAL INFORMATION: Lower extremity hyperreflexia. COMPARISON: None available. TECHNIQUE: MRI of the cervical spine without contrast was obtained using routine sequences. FINDINGS: Cervical alignment is normal. The vertebral body heights are maintained. The disc volumes are preserved. No cord signal abnormality is appreciated. There is no bone marrow edema. There are no acute fractures. The craniocervical junction is normal. Partially imaged intracranial compartment is unremarkable. There are cervical arterial flow voids are maintained. There are no significant soft tissue findings. Cervical disc contours are within normal limits. There is no central canal stenosis and there is no foraminal stenosis within the cervical spine. There is no cervical cord compression. IMPRESSION: Unremarkable MRI of the cervical spine. No cord signal abnormality and no cord compression.
[2017-09-23 19:28] VITALS: BP 100/70
[2017-09-23 23:00] VITALS: BP 100/60
[2017-09-24 07:20] VITALS: BP 100/70
--- NOTE | 2017-09-24 07:33 | PN- Housestaff ---
See Addendum Subjective Follow-up For: - Syncope 2/2 dehydration - GNR bacteremia - Inability to move her extremities - generalized non-physicologic weakness Tele-Events Since Last Visit: NSR, HR: 65-83 Subjective: Patient seen and examined at bedside. She states she feels much better todya than yesterday, however still endorses generalized wekaness. C/o slight headcahe , states she has a hx of migraine. Vitals past 24 hrs Tmax: 100.6F @ 12:57pm yesterday. Blood and urine culrtues growing pak-sensitive E. Coli. MRI of C-spine - unrevealing Review of Systems Constitutional: Reports: fever, weakness. Denies: chills. EENTM: Denies: visual changes. Cardiovascular: Denies: chest pain, orthopena, palpitations, peripheral edema. Respiratory: Denies: cough, orthopnea, short of breath, sputum production, wheezing. Gastrointestinal: Denies: abdominal pain, constipation, diarrhea, nausea, vomiting. Genitourinary: Reports: no symptoms. Musculoskeletal: Reports: no symptoms. Neurological/Psychological: Reports: headache. Denies: numbness, paresthesia, tingling, tremors. Objective Last 24 Hrs of Vital Signs/I&O Vital Signs Date Time Temp Pulse Resp B/P B/P Pulse O2 O2 Flow FiO2 Mean Ox Delivery Rate 09/24 0720 99.3 90 20 100/70 97 Room Air 09/23 2300 99.1 84 18 100/60 94 Room Air 09/23 2034 Room Air 09/23 1928 99.0 77 20 100/70 99 09/23 1754 98.8 84 18 110/78 98 09/23 1644 97.9 74 20 114/51 97 Room Air 09/23 1643 97.9 09/23 1643 97.9 09/23 1309 100.6 09/23 1257 100.6 79 20 104/76 99 Room Air 09/23 1153 96.3 80 97/58 09/23 1050 98.4 83 20 113/55 99 Room Air 09/23 1043 98.4 83 18 113/55 9 Intake & Output 09/24 0800 09/24 0000 09/23 1600 Intake Total 120 Output Total 600 Balance -480 Intake, Oral 120 Output, Urine 600 Patient 132 lb 124 lb Weight Weight Bed scale Reported by Patient Measurement Method Physical Exam General Appearance: Alert, Oriented X3, Cooperative, No Acute Distress HEENT: Atraumatic, PERRLA, EOMI, Mucous Membr. moist/pink Neck: Supple, No JVD, No thryomegaly, No LAD Cardiovascular: Regular Rate, Normal S1, Normal S2, No Murmurs Lungs: Clear to Auscultation, Normal Air Movement Abdomen: Normal Bowel Sounds, Soft, No Tenderness Neurological: Normal Speech, Normal Tone, Sensation Intact, Cranial Nerves 3-12 NL, Reflexes 2+, strength 3/5 in all four extremities Extremities: No Clubbing, No Cyanosis, No Edema, Normal Pulses, No Tenderness/ Swelling Vascular: Normal Pulses, Pulses Symmetrical Current Medications: Current Medications Sig/Efrain Start time Last Medication Dose Route Stop Time Status Admin Acetaminophen 0 .STK-MED ONE 09/23 1312 DC PO Acetaminophen 650 MG Q4P PRN 09/23 0900 AC 09/23 PO 1309 Acetaminophen 0 .STK-MED ONE 09/23 0857 DC PO Acetaminophen/ 1 TAB ONCE ONE 09/23 2230 DC 09/23 Butalbital/Caffeine PO 09/23 2231 2248 Ceftriaxone Sodium 1,000 MG DAILY 09/23 0900 AC 09/23 IV 1002 Enoxaparin Sodium 40 MG DAILY 09/23 0900 AC 09/23 SC 1002 Ferrous Sulfate 325 MG DAILY 09/23 1455 AC 09/23 PO 1643 Ibuprofen 0 .STK-MED ONE 09/23 1329 DC PO Ibuprofen 600 MG Q6P PRN 09/23 1315 AC 09/23 PO 1950 Magnesium Oxide 400 MG ONE ONE 09/23 0930 DC 09/23 PO 09/23 0931 1002 Potassium Chloride 0 .STK-MED ONE 09/23 0948 DC PO Potassium Chloride 60 MEQ ONCE ONE 09/23 0930 DC 09/23 PO 09/23 0931 1002 Sodium Chloride 1,000 ML .[id number] 09/22 1515 DC 09/23 IV 09/23 1754 0439 Last 24 Hrs of Lab/Diego Results Last 24 Hrs of Labs/Mics: Laboratory Tests 09/24/17 0642: Anion Gap 10, Estimated GFR > 60, BUN/Creatinine Ratio 17.5, Phosphorus 2.5, Magnesium 1.9, CBC w Diff NO MAN DIFF REQ, RBC 4.06 L, MCV 76.1 L, MCH 24.1 L , MCHC 31.7 L, RDW 17.1 H, MPV 8.3, Gran % 82.2 H, Lymphocytes % 9.8 L, Monocytes % 7.6, Eosinophils % 0.3, Basophils % 0.1, Absolute Granulocytes 5.5, Absolute Lymphocytes 0.7 L, Absolute Monocytes 0.5, Absolute Eosinophils 0, Absolute Basophils 0 Orders Radiology Findings: SERVICE DATE: 09/23/17 EXAM TYPE: MRI - MRI-CERVICAL SPINE FINDINGS: Cervical alignment is normal. The vertebral body heights are maintained. The disc volumes are preserved. No cord signal abnormality is appreciated. There is no bone marrow edema. There are no acute fractures. The craniocervical junction is normal. Partially imaged intracranial compartment is unremarkable. There are cervical arterial flow voids are maintained. There are no significant soft tissue findings. Cervical disc contours are within normal limits. There is no central canal stenosis and there is no foraminal stenosis within the cervical spine. There is no cervical cord compression. IMPRESSION: Unremarkable MRI of the cervical spine. No cord signal abnormality and no cord compression. Assessment/Plan Assessment: 47-year-old female with no signficant PMH was BIBA from work after a near syncope, low grade fevers, and urinary frequency and inability to move all 4 extremities since the episode of syncope happened earlier the day of her admission. Vitals on admission febrile to 103.7, tachycardic to 104, respiratory rate of 18 , blood pressure 126/61 saturating 98% on room air. On exam, cranial nerves WNL, motor exam-good tone with passive motion, no rigidity. Absent active motion. Able to move her fingers unprompted. Hyperreflexic in bilateral lower extremities. Normal bicep tendon reflexes. Labs pertinent for microcytic anemia with an H&H of 10.4/32.6 and an MCV of 75.7 with a normal platelet count of 209 and a white blood cell count of 8400. Serum chemistries presented for hypokalemia with potassium of 3.3, sodium of 141, bicarb 12, anion gap of 12, BUN 11, creatinine 0.5 and serum glucose 122, serum calcium 9.4 magnesium 1.9. LFTs pertinent for a total bili of 0.5, AST/ALT 12/ 26, alk phos of 59, creatinine kinase of 70, troponin I less than 0.01, TSH is 0.23 200 free T4 is 1.0. Beta hCG was negative. UA was very dirty positive for nitrite, moderate amount of leukocyte esterase with 25-50 white blood cells and a large amount of bacteria. CT head showed no acute intracranial hemorrhage or abnormal extra axial collection with no intracranial mass-effect or midline shift. Chest x-ray showed no acute abnormality. Assessment and plan Patient was admitted to telemetry and [facility] following problems were adressed: #Syncope -In the event of underlying sepsis from a urinary tract infection patient most likely had a syncopal episode secondary to dehydration and orthostatic positive. Of note she has not had any events on the monitor. Continue to maintain on fall precautions [facility] #Sepsis given fever, tachycardia and hypotension secondary to urinary tract infection Patient was started on IV ceftriaxone and IV fluids given that she had a dirty urine. Blood cultures and urine cultures show growth of pak-sensitive E.Coli. Continue on IV ceftriaxone and treated for bacteremia secondary to UTI. Transition to PO Bactrim tmrw. #Inability to move all 4 extremities status post syncopal episode On admissions her symptoms were concerning for GB syndrome, versus myasthenia gravis versus any underlying neuromuscular disorder vs stroke (unlikely) given that patient was barely opening her eyes, not protruding her tongue or extremities, had hyperactive DTRs but no clonus, or Babinski signs. Neurology consult was placed and patient was she was placed on telemetry to monitor for her respiratory status and every 2hrs neurochecks. Of note patient's symptoms subsequently improved. Other causes could be hypokalemic paralysis given she was low on her potassium however her symptoms improved despite the serum potassium still being low. There is concern that she may have some underlying psychiatric disorder and potentially conversion given she had a nonphysiologic neuro exam. Given her hyperreflexia an MRI of her cervical spine was done that showed no acute abnormalitity. A psych consult was also obtained. They attributed her symptoms to delirium secondary to infection. Patient was provided with card for [facility] outpatient psychiatry, offering the opportunity for her to talk, if she feels this will be helpful. No psychotropic interventions at this time. Though her symptoms did not fit the picture of stroke, speech swallow eval was ordered and they recommended that she started be on a regular diet. -DVT prophylaxis On Lovenox 40 mg subcu daily Diet Regular CODE STATUS Full Code Problem List: 1. Syncope 2. UTI (urinary tract infection) 3. Conversion disorder Pain Ratin Pain Location: headache Pain Goal: Remain pain free Pain Plan: fiorecet q8 PRN Tomorrow's Labs & Rationales: BEP - K; Mag
--- NOTE | 2017-09-24 07:34 | Discharge Summary ---
Visit Information Visit Dates Admission Date: 09/22/17 Discharge Date: 09/25/17 Hospital Course Course Attending Physician: Krys Roman MD Primary Care Physician: Caryn Ochoa APRN Consulting Request: 1 Consulting Specialty: Neurology Consulting Request: 2 Consulting Specialty: Psychiatry Hospital Course: 47-year-old female with no signficant PMH was BIBA from work after a near syncope, low grade fevers, and urinary frequency and inability to move all 4 extremities since the episode of syncope happened earlier the day of her admission. Vitals on admission febrile to 103.7, tachycardic to 104, respiratory rate of 18 , blood pressure 126/61 saturating 98% on room air. On exam, cranial nerves WNL, motor exam-good tone with passive motion, no rigidity. Absent active motion. Able to move her fingers unprompted. Hyperreflexic in bilateral lower extremities. Normal bicep tendon reflexes. Labs pertinent for microcytic anemia with an H&H of 10.4/32.6 and an MCV of 75.7 with a normal platelet count of 209 and a white blood cell count of 8400. Serum chemistries presented for hypokalemia with potassium of 3.3, sodium of 141, bicarb 12, anion gap of 12, BUN 11, creatinine 0.5 and serum glucose 122, serum calcium 9.4 magnesium 1.9. LFTs pertinent for a total bili of 0.5, AST/ALT 12/ 26, alk phos of 59, creatinine kinase of 70, troponin I less than 0.01, TSH is 0.23 200 free T4 is 1.0. Beta hCG was negative. UA was very dirty positive for nitrite, moderate amount of leukocyte esterase with 25-50 white blood cells and a large amount of bacteria. CT head showed no acute intracranial hemorrhage or abnormal extra axial collection with no intracranial mass-effect or midline shift. Chest x-ray showed no acute abnormality. Patient was admitted to telemetry and [facility] following problems were adressed: #Syncope -In the event of underlying sepsis from a urinary tract infection patient most likely had a syncopal episode secondary to dehydration and orthostatic positive. Of note she did not had any events on the monitor. #Sepsis given fever, tachycardia and hypotension secondary to urinary tract infection Patient was started on IV ceftriaxone and IV fluids given that she had a dirty urine. Blood cultures and urine cultures showed growth of pak-sensitive E.Coli. She was continued on IV ceftriaxone and treated for bacteremia secondary to UTI. Transition to PO Bactrim for a total of 10 days. #Inability to move all 4 extremities status post syncopal episode On admissions her symptoms were concerning for GB syndrome, versus myasthenia gravis versus any underlying neuromuscular disorder vs stroke (unlikely) given that patient was barely opening her eyes, not protruding her tongue or extremities, had hyperactive DTRs but no clonus, or Babinski signs. Neurology consult was placed and patient was she was placed on telemetry to monitor for her respiratory status and every 2hrs neurochecks. Of note patient's symptoms subsequently improved. Other causes could be hypokalemic paralysis given she was low on her potassium however her symptoms improved despite the serum potassium still being low. There was concern that she may have some underlying psychiatric disorder and potentially conversion given she had a nonphysiologic neuro exam. Given her hyperreflexia an MRI of her cervical spine was done that showed no acute abnormalitity. A psych consult was also obtained. They attributed her symptoms to delirium secondary to infection. Patient was provided with card for [facility] outpatient psychiatry, offering the opportunity for her to talk, if she feels this will be helpful. No psychotropic interventions at this time. Though her symptoms did not fit the picture of stroke, speech swallow eval was ordered and they recommended that she started be on a regular diet. #Anemia Patient was anemic and iron studies were c/w iron deficiency anemia. Patient was started on iron supplements. -DVT prophylaxis Patient was on Lovenox 40 mg sc daily Diet Pateint was on a regular diet Allergies: Coded Allergies: NO KNOWN ALLERGIES (07/19/16) Significant Procedures: SERVICE DATE: 09/22/17 EXAM TYPE: CAT - CT HEAD WO IV CONTRAST FINDINGS: There is no acute intracranial hemorrhage or abnormal extra-axial collection. No intracranial mass effect or midline shift. Lateral and third ventricles are normal. No hydrocephalus. Miranda-white matter differentiation is grossly preserved and there is no evidence of acute territorial infarct. The calvarium and skull base are intact. Mastoid air cells and middle ear cavities are well-aerated. Visualized paranasal sinuses are well-aerated. IMPRESSION: Normal CT scan of the head. SERVICE DATE: 09/22/17 EXAM TYPE: RAD - XRY-PORTABLE CHEST XRAY FINDINGS: The cardiomediastinal silhouette is normal. The lungs are clear. No consolidation, pulmonary edema, pleural effusion, or pneumothorax. No acute osseous abnormality. IMPRESSION: No acute abnormality. SERVICE DATE: 09/23/17 EXAM TYPE: MRI - MRI-CERVICAL SPINE FINDINGS: Cervical alignment is normal. The vertebral body heights are maintained. The disc volumes are preserved. No cord signal abnormality is appreciated. There is no bone marrow edema. There are no acute fractures. The craniocervical junction is normal. Partially imaged intracranial compartment is unremarkable. There are cervical arterial flow voids are maintained. There are no significant soft tissue findings. Cervical disc contours are within normal limits. There is no central canal stenosis and there is no foraminal stenosis within the cervical spine. There is no cervical cord compression. IMPRESSION: Unremarkable MRI of the cervical spine. No cord signal abnormality and no cord compression. Disposition Summary Disposition Principal Diagnosis: # Syncope #Sepsis given fever, tachycardia and hypotension secondary to urinary tract infection #Inability to move all 4 extremities status post syncopal episode Additional Diagnosis: ? Depression Discharge Disposition: home or self care Discharge Instructions General Discharge Information Code Status: Full Code Patient's Diet: Regular Patient's Activity: As tolerated Follow-Up Instructions/Appts: Please follow up with your primary care physician in one week. Please follow up with your psychiatrist in one week. Please follow up with your neurologist in one week. Medications at Discharge Discharge Medications: Start taking the following new medications: Sulfamethoxazole/Trimethoprim (Bactrim 400-80 MG Tablet) 400 MG-80 MG TABLET 1 Tablet ORAL TWICE DAILY Qty = 16 No Refills Instructions: . Comments: GIVEN ROCEPHIN IN THE HOSPITAL Last Taken:09/25/17 Time: 0856 Ferrous Sulfate (Ferrous Sulfate) 325 MG (65 MG IRON) TABLET. 325 Milligram ORAL DAILY Qty = 90 No Refills Instructions: . Comments: Last Taken: 09/25/17 Time: 0856 Copies To: Mari AU,Reinaldo Denney; Ryder Ochoa APRN, APRN, Stephen F Attending MD Review Statement Documenting Attending: Krys Roman MD Other Findings: Patient clinically improved and working with PT. Medically stable for discharge.
[2017-09-24 08:14] LABS: ABSOLUTE BASOPHIL COUNT 0 /CUMM (0.0-0.2); ABSOLUTE EOSINOPHIL COUNT 0 /CUMM (0.0-0.7); ABSOLUTE GRANULOCYTE CT 5.5 /CUMM (1.4-6.5); ABSOLUTE LYMPH COUNT 0.7 /CUMM (1.2-3.4); ABSOLUTE MONOCYTE COUNT 0.5 /CUMM (0.10-0.60); BASOPHIL % 0.1 % (0.0-2.0); EOSINOPHIL % 0.3 % (0-5); GRANULOCYTE % 82.2 % (42.2-75.2); HEMATOCRIT 30.9 % (37-47); MEAN CORPUSCULAR HGB 24.1 PG (27.0-31.0); MEAN CORPUSCULAR HGB CONC 31.7 G/DL (33.0-37.0); MEAN CORPUSCULAR VOLUME 76.1 FL (81.0-99.0); MEAN PLATELET VOLUME 8.3 FL (7.4-10.4); PLATELET COUNT 186 /CUMM (130-400); RBC DISTRIBUTION WIDTH 17.1 % (11.5-14.5); RED BLOOD CELL CT 4.06 /CUMM (4.20-5.40); WHITE BLOOD CELL COUNT 6.7 /CUMM (4.8-10.8)
--- NOTE | 2017-09-24 08:30 | Cons- Psychiatry ---
Psychiatric Consult Date of Consult: 09/23/17 Reason for Consult: "?Conversion disorder" History of Present Illness: 47 y.o. 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 She reports that this has happened before at her dentist office, and she states that she feels a prodrome, but cannot describe it. She denies a psychiatric history, but reports that she was prescribed "a pill for sadness" many years ago, not connected with her pregnancies, but she never took the medication. She has two children, an older son, and a daughter, 17 with whom she lives. She was born in [facility], and speaks and understands Lithuanian well. She was admitted for a urinary tract infection, which she says occurs frequently. Allergies: Coded Allergies: NO KNOWN ALLERGIES (07/19/16) Current Medications: Current Medications Sig/Efrain Start time Last Medication Dose Route Stop Time Status Admin Acetaminophen 0 .STK-MED ONE 09/23 1312 DC PO Acetaminophen 650 MG Q4P PRN 09/23 0900 AC 09/23 PO 1309 Acetaminophen 0 .STK-MED ONE 09/23 0857 DC PO Acetaminophen/ 1 TAB ONCE ONE 09/23 2230 DC 09/23 Butalbital/Caffeine PO 09/23 2231 2248 Ceftriaxone Sodium 1,000 MG DAILY 09/23 0900 AC 09/23 IV 1002 Enoxaparin Sodium 40 MG DAILY 09/23 0900 AC 09/23 SC 1002 Ferrous Sulfate 325 MG DAILY 09/23 1455 AC 09/23 PO 1643 Ibuprofen 0 .STK-MED ONE 09/23 1329 DC PO Ibuprofen 600 MG Q6P PRN 09/23 1315 AC 09/23 PO 1950 Magnesium Oxide 400 MG ONE ONE 09/23 0930 DC 09/23 PO 09/23 0931 1002 Potassium Chloride 0 .STK-MED ONE 09/23 0948 DC PO Potassium Chloride 60 MEQ ONCE ONE 09/23 0930 DC 09/23 PO 09/23 0931 1002 Sodium Chloride 1,000 ML .[id number] 09/22 1515 DC 09/23 IV 09/23 1754 0439 Past History Past Medical History Neurological: NONE EENT: NONE Cardiovascular: NONE Respiratory: NONE Gastrointestinal: NONE Hepatic: NONE Renal: NONE Musculoskeletal: NONE Psychiatric: Vague report of depression, not treated; pt feels it resolved on its own. Endocrine: NONE Blood Disorders: anemia Cancer(s): NONE [employer] CLERK/Reproductive: NONE Past Surgical History Surgical History: , breast biopsy Psychosocial History Strengths/Capabilities: The patient is employed, has stable housing and resides with her children. Physical Limitations (Interventions): The patient states that she is not currently able to walk. Psychiatric Treatment History Psych Treatment Psychiatric Treatment No (denies) Diagnosis: N/A Risk Factors: none identified Substance Use/Abuse History Drug Use/Abuse Substances Used/Abused No (denies) Substance Abuse Treatment Substance Abuse Treatment Past Substance Abuse [place] No Assessment/Plan Mental Status Orientation: oriented to person, place, month, year, but off by one day Affect: WNL Speech: WNL Neuro-vegetative: Sleep Disturbance Mental Status Exam: The patient is calm, pleasant and cooperative. She is sitting up in her bed, mood is euthymic; congruent affect. She denies auditory or visual hallucinations, and presents no heydi delusions. She reports is her sleep as from 9 p.m. to 6 a.m., and feels rested sometimes. She denies depression. She denies hopelessness, helplessness, worthlessness and guilty feelings. She denies anxiety, "I've no worries." She denies suicidal or homicidal ideation, and denies any history of suicide attempts. She denies any use of alcohol or drugs. Lab Results: Laboratory Tests 09/24 09/23 0642 0547 Chemistry Sodium (137 - 145 mmol/L) Pending 140 Potassium (3.5 - 5.1 mmol/L) Pending 3.3 L Chloride (98 - 107 mmol/L) Pending 108 H Carbon Dioxide (22 - 30 mmol/L) Pending 22 Anion Gap (5 - 16) Pending 10 BUN (7 - 17 mg/dL) Pending 6 L Creatinine (0.5 - 1.0 mg/dL) Pending 0.4 L Estimated GFR (>60 ml/min) > 60 BUN/Creatinine Ratio (7 - 25 %) Pending 15.0 Phosphorus (2.5 - 4.5 mg/dL) Pending 3.1 Magnesium (1.6 - 2.3 mg/dL) Pending 1.6 Iron (37 - 170 ug/dL) 16 L TIBC (265 - 497 ug/dL) 321 Ferritin (6.24 - 137 ng/mL) 18.6 Creatine Kinase (30 - 135 U/L) 47 TSH &T3 &Free T4 Intrp (0.270 - 4.20 uIU/mL) 0.234 L Hematology CBC w Diff Pending NO MAN DIFF REQ WBC (4.8 - 10.8 /CUMM) Pending 8.6 RBC (4.20 - 5.40 /CUMM) Pending 4.02 L Hgb (12.0 - 16.0 G/DL) Pending 9.7 L Hct (37 - 47 %) Pending 30.5 L MCV (81.0 - 99.0 FL) Pending 75.8 L MCH (27.0 - 31.0 PG) Pending 24.0 L MCHC (33.0 - 37.0 G/DL) Pending 31.7 L RDW (11.5 - 14.5 %) Pending 17.6 H Plt Count (130 - 400 /CUMM) Pending 179 MPV (7.4 - 10.4 FL) Pending 8.5 Gran % (42.2 - 75.2 %) 84.4 H Lymphocytes % (20.5 - 51.1 %) 8.9 L Monocytes % (1.7 - 9.3 %) 6.3 Eosinophils % (0 - 5 %) 0.2 Basophils % (0.0 - 2.0 %) 0.2 Absolute Granulocytes (1.4 - 6.5 /CUMM) 7.2 H Absolute Lymphocytes (1.2 - 3.4 /CUMM) 0.8 L Absolute Monocytes (0.10 - 0.60 /CUMM) 0.5 Absolute Eosinophils (0.0 - 0.7 /CUMM) 0 Absolute Basophils (0.0 - 0.2 /CUMM) 0 09/22 09/22 1038 1035 Chemistry Sodium (137 - 145 mmol/L) 141 Potassium (3.5 - 5.1 mmol/L) 3.3 L Chloride (98 - 107 mmol/L) 107 Carbon Dioxide (22 - 30 mmol/L) 22 Anion Gap (5 - 16) 12 BUN (7 - 17 mg/dL) 11 Creatinine (0.5 - 1.0 mg/dL) 0.5 Estimated GFR (>60 ml/min) > 60 BUN/Creatinine Ratio (7 - 25 %) 22.0 Glucose (65 - 99 mg/dL) 122 H Lactic Acid (0.7 - 2.1 mmol/L) 0.8 Calcium (8.4 - 10.2 mg/dL) 9.4 Magnesium (1.6 - 2.3 mg/dL) 1.9 Total Bilirubin (0.2 - 1.3 mg/dL) 0.5 AST (14 - 36 U/L) 12 L ALT (9 - 52 U/L) 26 Alkaline Phosphatase (<127 U/L) 59 Creatine Kinase (30 - 135 U/L) 70 Troponin I (< 0.11 ng/ml) < 0.01 Total Protein (6.3 - 8.2 g/dL) 7.2 Albumin (3.5 - 5.0 g/dL) 3.9 Globulin (1.9 - 4.2 gm/dL) 3.3 Albumin/Globulin Ratio (1.1 - 2.2 %) 1.2 TSH (0.270 - 4.200 uIU/mL) 0.232 L Free T4 (0.64 - 1.79 ng/dL) 1.00 Thyroxine (T4) (4.5 - 10.9 ug/dL) 7.8 Total T3 (0.97 - 1.69 ng/mL) 0.99 Total Beta HCG (NEGATIVE) NEGATIVE Hematology CBC w Diff NO MAN DIFF REQ WBC (4.8 - 10.8 /CUMM) 8.4 RBC (4.20 - 5.40 /CUMM) 4.31 Hgb (12.0 - 16.0 G/DL) 10.4 L Hct (37 - 47 %) 32.6 L MCV (81.0 - 99.0 FL) 75.7 L MCH (27.0 - 31.0 PG) 24.2 L MCHC (33.0 - 37.0 G/DL) 31.9 L RDW (11.5 - 14.5 %) 16.8 H Plt Count (130 - 400 /CUMM) 209 MPV (7.4 - 10.4 FL) 7.4 Gran % (42.2 - 75.2 %) 85.4 H Lymphocytes % (20.5 - 51.1 %) 7.5 L Monocytes % (1.7 - 9.3 %) 6.9 Eosinophils % (0 - 5 %) 0.2 Basophils % (0.0 - 2.0 %) 0 Absolute Granulocytes (1.4 - 6.5 /CUMM) 7.2 H Absolute Lymphocytes (1.2 - 3.4 /CUMM) 0.6 L Absolute Monocytes (0.10 - 0.60 /CUMM) 0.6 Absolute Eosinophils (0.0 - 0.7 /CUMM) 0 Absolute Basophils (0.0 - 0.2 /CUMM) 0 Urines Urine Color (YEL,AMB,STR) YEL Urine Clarity (CLEAR) HAZY H Urine pH (5.0 - 8.0) 6.0 Ur Specific [place] (1.001 - 1.035) 1.025 Urine Protein (NEG,<30 MG/DL) 100 H Urine Ketones (NEG) NEG Urine Nitrite (NEG) POS H Urine Bilirubin (NEG) NEG Urine Urobilinogen (0.1 - 1.0 EU/dl) 0.2 Ur Leukocyte Esterase (NEG) MOD H Ur Microscopic SEDIMENT EXAMINED Urine RBC (0 - 5 /HPF) 5-10 H Urine WBC (0 - 2 /HPF) 25-50 H Urine Bacteria (NEG/NONE) MANY H Urine Hemoglobin (NEG) LARGE H Urine Glucose (N MG/DL) NEG Microbiology Date/Time Procedure - Status Source Growth 09/22 1330 Blood Culture - COMP BLOOD 09/22 1214 Blood Culture - COMP BLOOD ESCHERICHIA COLI 09/22 1035 Urine Culture - RES URINE ROUT GRAM NEGATIVE RODS 09/22 1035 Influenza Virus A & B Rapid Smear - COMP NASOPHARYN Diffential Diagnosis: Delirium secondary to medical Condition, infective Impression: Late entry. Normal psychiatric exam. I've left a card for the patient for [facility] outpatient psychiatry, offering the opportunity for her to talk, if she feels this will be helpful. Her biggest complaint is trying to find a boyfriend who doesn't expect her to drink or use drugs. Her first priority is to her children. Provisional Treatment Plan: No psychotropic interventions at this time.
[2017-09-24] MEDS ORDERED: FERROUS SULFAT325 M2 PO ×2 (12:35→13:39)
[2017-09-24] MEDS ORDERED: BACTRIM 400-801 EACH PO ×2 (13:11→13:39)
--- NOTE | 2017-09-24 13:16 | Patient Discharge Instructions ---
Discharge Instructions General Discharge Information You were seen/treated for: - E.Coli bactermia 2/2 UTI Special Instructions: Please follow up with your primary care physician in one week. Please follow up with your psychiatrist in one week. Please follow up with your neurologist in one week. Diet Recommended Diet: Regular Activity Activity Self Limited: Yes Acute Coronary Syndrome Inclusion Criteria At DC or during hospital stay patient has or had the following: ACS DIAGNOSIS No Discharge Core Measures Meds if any: Prescribed or Continued at Discharge Meds if any: NOT Prescribed or Continued at Discharge Congestive Heart Failure Inclusion Criteria At DC or during hospital stay patient has or had the following: CHF DIAGNOSIS No Discharge Core Measures Meds if any: Prescribed or Continued at Discharge Meds if any: NOT Prescribed or Continued at Discharge Cerebrovascular accident Inclusion Criteria At DC or during hospital stay patient has or had the following: CVA/TIA Diagnosis No Discharge Core Measures Meds if any: Prescribed or Continued at Discharge Meds if any: NOT Prescribed or Continued at Discharge Venous thromboembolism Inclusion Criteria VTE Diagnosis No VTE Type NONE VTE Confirmed by (Test) NONE Discharge Core Measures - Per Current guidelines, there needs to be overlap - treatment for the first 5 days of Warfarin therapy. - If discharged on Warfarin prior to 5 days of - overlap therapy, the patient will need to be - assessed for post discharge needs including - *Post discharge parental anticoagulation - *Warfarin and/or parental anticoagulation education - *Follow up date to check INR post discharge At least 5 days overlap therapy as Inpatient No Meds if any: Prescribed or Continued at Discharge Note: Overlap Therapy is Warfarin and Anticoagulant Meds if any: NOT Prescribed or Continued at Discharge
[2017-09-24 15:44] VITALS: BP 110/72
[2017-09-24 22:23] VITALS: BP 104/60
[2017-09-25 06:28] VITALS: BP 104/62
--- NOTE | 2017-09-25 07:33 | PN- Housestaff ---
Ul Gin AU,[facility] 09/25/17 0732: Subjective Follow-up For: Syncope 2/2 dehydration GNR bacteremia Inability to move her extremities - generalized non-physicologic weakness Subjective: Patient had a MAXIMUM TEMPERATURE of 100.4 overnight. No significant tachycardia. Systolic blood pressure in range of 100s and diastolic blood pressure in 60s to 70s. Oxygen saturation of 98% on room air. Review of Systems Constitutional: Reports: fever. Denies: chills. EENTM: Denies: visual changes. Cardiovascular: Denies: chest pain, palpitations. Respiratory: Denies: cough, short of breath. Gastrointestinal: Denies: abdominal pain, nausea, vomiting. Genitourinary: Denies: discharge. Musculoskeletal: Denies: back pain, joint pain. Objective Last 24 Hrs of Vital Signs/I&O Vital Signs Date Time Temp Pulse Resp B/P B/P Pulse O2 O2 Flow FiO2 Mean Ox Delivery Rate 09/25 0628 98.4 81 16 104/62 98 Room Air 09/24 2223 97.9 66 20 104/60 98 09/24 1637 100.4 09/24 1544 99.7 92 20 110/72 100 Intake & Output 09/25 0800 09/25 0000 09/24 1600 Intake Total 600 Output Total 550 500 300 Balance -550 -500 300 Intake, Oral 600 Output, Urine 550 500 300 Patient 130 lb Weight Physical Exam General Appearance: Alert, Oriented X3, Cooperative Skin: No Rashes HEENT: Atraumatic Neck: Supple, No JVD Cardiovascular: Regular Rate, Normal S1, Normal S2, No Murmurs Lungs: Clear to Auscultation, Normal Air Movement Abdomen: Normal Bowel Sounds, Soft, No Tenderness Neurological: Normal Speech, Strength at 5/5 X4 Ext, Normal Tone, Sensation Intact Extremities: No Clubbing, No Cyanosis, No Edema Vascular: Normal Pulses Current Medications: Current Medications Sig/Efrain Start time Last Medication Dose Route Stop Time Status Admin Acetaminophen 650 MG Q4P PRN 09/23 899 AC 09/23 PO 1309 Acetaminophen/ 1 TAB Q8P PRN 09/24 0845 AC Butalbital/Caffeine PO Ceftriaxone Sodium 1,000 MG DAILY 09/23 09 AC 09/24 IV 1034 Enoxaparin Sodium 40 MG DAILY 09/23 09 AC 09/24 SC 1028 Ferrous Sulfate 325 MG DAILY 09/23 1455 AC 09/23 PO 1643 Ibuprofen 600 MG Q6P PRN 09/23 1315 AC 09/24 PO 1637 Magnesium Oxide 400 MG ONE ONE 09/24 0845 DC 09/24 PO 09/24 0846 1023 Potassium Chloride 40 MEQ ONCE ONE 09/24 0845 DC 09/24 PO 09/24 0846 1024 Last 24 Hrs of Lab/Diego Results Last 24 Hrs of Labs/Mics: Laboratory Tests 09/25/17 0614: Sodium Pending, Potassium Pending, Chloride Pending, Carbon Dioxide Pending, Anion Gap Pending, BUN Pending, Creatinine Pending, BUN/Creatinine Ratio Pending , CBC w Diff Pending, WBC Pending, RBC Pending, Hgb Pending, Hct Pending, MCV Pending, MCH Pending, MCHC Pending, RDW Pending, Plt Count Pending, MPV Pending 09/25/17 0215: Urine Opiates Screen < 100, Methadone Screen < 40, Barbiturate Screen 583 H, Ur Phencyclidine Scrn < 6.00, Amphetamines Screen < 100, U Benzodiazepines Scrn < 85, Urine Cocaine Screen < 50, Urine Cannabis Screen < 5.00 Lines/Diet/Fluids Lines: peripheral lines Restraints: none Assessment/Plan Assessment: 47-year-old female with no signficant PMH was BIBA from work after a near syncope, low grade fevers, and urinary frequency and inability to move all 4 extremities since the episode of syncope happened earlier the day of her admission. Vitals on admission febrile to 103.7, tachycardic to 104, respiratory rate of 18 , blood pressure 126/61 saturating 98% on room air. On exam, cranial nerves WNL, motor exam-good tone with passive motion, no rigidity. Absent active motion. Able to move her fingers unprompted. Hyperreflexic in bilateral lower extremities. Normal bicep tendon reflexes. Labs pertinent for microcytic anemia with an H&H of 10.4/32.6 and an MCV of 75.7 with a normal platelet count of 209 and a white blood cell count of 8400. Serum chemistries presented for hypokalemia with potassium of 3.3, sodium of 141, bicarb 12, anion gap of 12, BUN 11, creatinine 0.5 and serum glucose 122, serum calcium 9.4 magnesium 1.9. LFTs pertinent for a total bili of 0.5, AST/ALT 12/ , alk phos of 59, creatinine kinase of 70, troponin I less than 0.01, TSH is 0.23 200 free T4 is 1.0. Beta hCG was negative. UA was very dirty positive for nitrite, moderate amount of leukocyte esterase with 25-50 white blood cells and a large amount of bacteria. CT head showed no acute intracranial hemorrhage or abnormal extra axial collection with no intracranial mass-effect or midline shift. Chest x-ray showed no acute abnormality. Assessment and plan Patient was admitted to telemetry and [facility] following problems were adressed: #Syncope In the event of underlying sepsis from a urinary tract infection patient most likely had a syncopal episode secondary to dehydration and orthostatic positive. Of note she has not had any events on the monitor. Continue to maintain on fall precautions [facility] #Sepsis Given fever, tachycardia and hypotension secondary to urinary tract infection. Patient was started on IV ceftriaxone and IV fluids given that she had a dirty urine. Blood cultures and urine cultures show growth of pak-sensitive E.Coli. Continue on IV ceftriaxone and treated for bacteremia secondary to UTI. Consider Transition to PO Bactrim tmrw. #Inability to move all 4 extremities status post syncopal episode On admissions her symptoms were concerning for GB syndrome, versus myasthenia gravis versus any underlying neuromuscular disorder vs stroke (unlikely) given that patient was barely opening her eyes, not protruding her tongue or extremities, had hyperactive DTRs but no clonus, or Babinski signs. Neurology consult was placed and patient was she was placed on telemetry to monitor for her respiratory status and every 2hrs neurochecks. Of note patient's symptoms subsequently improved. Other causes could be hypokalemic paralysis given she was low on her potassium however her symptoms improved despite the serum potassium still being low. There is concern that she may have some underlying psychiatric disorder and potentially conversion given she had a nonphysiologic neuro exam. Given her hyperreflexia an MRI of her cervical spine was done that showed no acute abnormalitity. A psych consult was also obtained. They attributed her symptoms to delirium secondary to infection. Patient was provided with card for [facility] outpatient psychiatry, offering the opportunity for her to talk, if she feels this will be helpful. No psychotropic interventions at this time. Though her symptoms did not fit the picture of stroke, speech swallow eval was ordered and they recommended that she started be on a regular diet. DVT prophylaxis On Lovenox 40 mg subcu daily Diet Regular CODE STATUS Full Code Problem List: 1. UTI (urinary tract infection) Pain Ratin Pain Location: NA Pain Goal: Pain 4 or less Pain Plan: Continue current pain meds Tomorrow's Labs & Rationales: Depends on today's lab DVT/Prophylaxis: pharmacological Consulting Request: Consulting Specialty: Psychiatry Krys Roman 09/25/17 1343: Attending MD Review Statement Attending Statement Attending MD Statement: examined this patient, discuss w/resident/PA/SHOE STAINER, agreed w/resident/PA/SHOE STAINER, discussed with family, reviewed EMR data (avail), discussed with nursing, discussed with case mgmt, reviewed images, amended to note Attending Assessment/Plan: Patient clinically improved and working with PT. Medically stable for discharge.
[2017-09-25 07:44] LABS: ABSOLUTE BASOPHIL COUNT 0 /CUMM (0.0-0.2); ABSOLUTE EOSINOPHIL COUNT 0.1 /CUMM (0.0-0.7); ABSOLUTE GRANULOCYTE CT 3.6 /CUMM (1.4-6.5); ABSOLUTE LYMPH COUNT 1.1 /CUMM (1.2-3.4); ABSOLUTE MONOCYTE COUNT 0.6 /CUMM (0.10-0.60); BASOPHIL % 0.1 % (0.0-2.0); EOSINOPHIL % 0.9 % (0-5); GRANULOCYTE % 67.4 % (42.2-75.2); MEAN CORPUSCULAR HGB 24.7 PG (27.0-31.0); MEAN CORPUSCULAR HGB CONC 33.2 G/DL (33.0-37.0); MEAN CORPUSCULAR VOLUME 74.5 FL (81.0-99.0); MEAN PLATELET VOLUME 8.3 FL (7.4-10.4); PLATELET COUNT 220 /CUMM (130-400); RBC DISTRIBUTION WIDTH 17.5 % (11.5-14.5); RED BLOOD CELL CT 4.17 /CUMM (4.20-5.40); WHITE BLOOD CELL COUNT 5.4 /CUMM (4.8-10.8)
== END 2017-09-25 11:40 | disposition home health service (06) | DRG 720 ==
LOC: ERH 09:48 → 1NO 14:40 → ERHI 14:40 → ENTRNSPT 09-23 18:53 → EDTRNSPTSTS 09-23 18:57 → 1NO 09-23 19:15 → CMPTRNSPT 09-23 19:22 → ENPENDDIS 09-24 13:39 → ENTRNSPT 09-25 11:26 → EDTRNSPTSTS 09-25 11:34 → EDTRNSPT 09-25 11:34 → 1NO 09-25 11:40 → CMPTRNSPT 09-25 11:47
PROVIDERS: Emergency Medicine; Internal Medicine Hematology & Oncology; Internal Medicine Infectious Disease
DX: A41.51 Sepsis due to Escherichia coli [E. coli] (principal); B96.20 Unspecified Escherichia coli [E. coli] as the cause of diseases classified elsewhere; N39.0 Urinary tract infection, site not specified; R55 Syncope and collapse; E86.0 Dehydration; R00.0 Tachycardia, unspecified; G83.89 Other specified paralytic syndromes; D50.9 Iron deficiency anemia, unspecified
CPT/HCPCS: 1NSP; 72141; ERO; 36592; 71045; 80307; 81001; 82436; 87040; 87086; 87804; 87804-59; 93005; 93010; 96361; 96374; 97116-GO; 97161-GP; 97530-GO; 99232; J0131; J0696; J1650